=== PATIENT | male | born 1985 | race Caucasian/White ===

== ENCOUNTER 2021-04-10 20:20 | Inpatient (IN) ==
[2021-04-10 20:56] LABS: Appearance Urine Clear (Clear); Bacteria Urine Automated Negative (Negative); Bilirubin Urine Negative (Negative); Blood Urine Negative (Negative); Color Urine Dark Yellow; Glucose Urine UA Negative (Negative); Ketones Urine 1+ (Negative); Leukocyte Esterase Urine Negative (Negative); Nitrite Urine Negative (Negative); Protein Urine 1+ (Negative); RBC Urine Automated 0-4 /hpf (0-4); Specific Gravity Urine 1.034 (1.000-1.030); Urobilinogen Urine Negative (Negative); pH Urine 5.5 (4.5-7.5)
[2021-04-10 21:08] LABS: Basophils # (auto) 0.03 K/uL (0-0.2); Basophils % (auto) 0.3 %; Eosinophils # (auto) 0.03 K/uL (0-0.5); Eosinophils % (auto) 0.3 %; Hematocrit (blood only) 40.8 % (42-52); Hemoglobin 13.5 g/dL (14.0-18.0); Immature Granulocytes # (auto) 0.01 K/uL (0.00-0.02); Immature Granulocytes % (auto) 0.1 %; Lymphocytes # (auto) 3.65 K/uL (1.2-3.4); Lymphocytes % (auto) 33.2 %; Mean Corpuscular Hemoglobin 25.6 pg (25-34); Mean Corpuscular Hgb Conc 33.1 g/dL (32-36); Mean Corpuscular Volume 77.4 fL (80-100); Mean Platelet Volume 9.5 fL (7.4-10.4); Monocytes % (auto) 6.4 %; Neutrophils # (auto) 6.59 K/uL (1.4-6.5); Neutrophils % (auto) 59.7 %; Platelet Count 331 K/uL (130-400); RDW Coefficient of Variation 17.1 % (11.5-14.5); RDW Standard Deviation 48.4 fL (36.4-46.3); Red Blood Count 5.27 M/uL (4.7-6.1); White Blood Count 11.01 K/uL (4.8-10.8)
[2021-04-10 21:22] LABS: Amphetamines+Metham, Urine Pos (Neg); Barbiturates, Urine Neg (Neg); Benzodiazepine, Urine Neg (Neg); Cocaine, Urine Neg (Neg); MDMA (Ecstacy), Urine Pos (Neg); Methadone, Urine Neg (Neg); Opiate, Urine Neg (Neg); Phencyclidine, Urine Neg (Neg)
[2021-04-10 21:24] LABS: Albumin Level 4.5 gm/dl (3.4-5.0); BUN Creatinine Ratio 17.6 (10-20); Calcium 9.9 mg/dl (8.5-10.1); Creatinine Clr Calc Pharmacy 94.1 ml/min; Est GFR (African American) 86.5 ml/min; Est GFR (Non-African American) 74.7 ml/min; Potassium 3.9 mmol/L (3.5-5.1)
[2021-04-10 21:35] LABS: Albumin Globulin Ratio 1.1 (0.9-2); Globulin 4.2 gm/dl (2.5-4.0); Thyroid Stimulating Hormone 1.84 uIu/ml (0.300-4.500); Total Protein 8.7 gm/dl (6.4-8.2)
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
[2021-04-10 21:50] LABS: Acetaminophen < 2 ug/ml (10-30); Salicylate 4.5 mg/dl (2.8-20)
[2021-04-10] MEDS ORDERED: BENZONATATE 100 MG CAPSULE PO ONE (22:47)
[2021-04-10] MEDS ORDERED: BUPRENORPHINE/NALOXONE 8/2 MG TAB SL STA (23:50)
--- NOTE | 2021-04-11 00:24 | Emergency Department Note ---
ED Visit Note This case was signed out to me at change of shift awaiting bed placement. The patient met with the ED psychiatric case management director and began to deny the suicidal ideation. The case management director petitioned a 302. I signed off on the petitioning statement as I felt the patient had made a serious suicidal threat. The patient was accepted to [address]. .
[2021-04-11] MEDS ORDERED: ACETAMINOPHEN 325 MG TAB PO PRN (04:34)
[2021-04-11] MEDS ORDERED: SODIUM CHLORIDE 0.65% NA SOLN 45 ML (OCEAN) PRN (04:34)
[2021-04-11] MEDS ORDERED: ALUMINUM/MAGNESIUM SUSP 30 ML UDC PO PRN (04:34)
[2021-04-11] MEDS ORDERED: hydrOXYzine HCl 25 MG TAB PO PRN ×2 (04:34)
[2021-04-11] MEDS ORDERED: MAGNESIUM HYDROXIDE SUSP 30 ML UDC PO PRN (04:34)
[2021-04-11] MEDS ORDERED: BISMUTH SUBSALICYLATE LIQD 236 ML PO PRN (04:34)
[2021-04-11] MEDS: NICOTINE 21 MG/24 HR TDSY TD SCH (08:52)
[2021-04-11] MEDS: NICOTINE POLACRILEX 2 MG GUM MT PRN ×4 (08:54→21:48)
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
[2021-04-11] MEDS ORDERED: BUPRENORPHINE/NALOXONE 8/2 MG TAB SL STA (12:15)
[2021-04-11] MEDS ORDERED: ALUMINUM/MAGNESIUM/SIMETH (MAALOX MAX) 30 ML UDC PO PRN (12:52)
[2021-04-11] MEDS ORDERED: MELATONIN 3 MG TAB PO PRN (12:52)
[2021-04-11] MEDS ORDERED: OMEPRAZOLE 40 MG PO SCH (13:00)
[2021-04-11] MEDS: hydrOXYzine HCl 25 MG TAB PO SCH ×2 (14:00→20:45)
[2021-04-11] MEDS: buPROPion XL 150 MG TABCR PO SCH (14:00)
[2021-04-11] MEDS: BUPRENORPHINE/NALOXONE 8/2 MG TAB SL SCH (20:46)
[2021-04-11] MEDS ORDERED: PRAZOSIN HCL 1 MG CAP PO SCH (22:00)
[2021-04-11] MEDS ORDERED: DOXEPIN HCL 50 MG CAPSULE PO SCH (22:00)
[2021-04-12] MEDS: hydrOXYzine HCl 25 MG TAB PO SCH ×3 (08:43→21:26)
[2021-04-12] MEDS: buPROPion XL 150 MG TABCR PO SCH (08:43)
[2021-04-12] MEDS: MULTIVITAMIN TAB PO SCH (08:43)
[2021-04-12] MEDS: BUPRENORPHINE/NALOXONE 8/2 MG TAB SL SCH ×2 (08:43→21:26)
[2021-04-12] MEDS: NICOTINE 21 MG/24 HR TDSY TD SCH (08:44)
[2021-04-12] MEDS ORDERED: buPROPion XL 150 MG TABCR PO SCH (09:00)
[2021-04-12] MEDS: NICOTINE POLACRILEX 2 MG GUM MT PRN ×5 (09:14→21:42)
[2021-04-12] MEDS ORDERED: NICOTINE POLACRILEX 2 MG GUM MT PRN ×2 (12:53→13:20)
--- NOTE | 2021-04-12 18:58 | Psychiatric Progress Note ---
Date of Service April 12, 2021 Impression / Recommendations Impression Mr. Sebastián Turpin is a 35-year-old male who was brought to the emergency department by police after he had called them because he needed to come to the hospital. Patient admits that the reason that he needed to come to the hospital is because he wanted to continue his medications, he wanted to stay off the streets, and he is concerned that he is being followed by people he thinks he has information on. Patient does not appear paranoid in any other way he he is genuinely concerned about family members he thinks have committed a crime and may be out to" stop him" patient does not appear psychotic there is no evidence of response to internal stimuli patient denies depression his affect throughout the meeting was full, he is able to easily engage does not show states that he is paranoid towards them he does give the sense that he is avoiding some P persons on the outside. Patient denies homicidal ideation patient denies access to guns. Patient is willing to go back to rehab. Patient also was willing to give consent to the rehab facility to obtain his medication list he willingly gave consent to the pharmacy to get his medications, but he did not want staff talking to the family members to confirm his story. Patient's PDMP is listed below, patient reports being on 16 mg of Suboxone daily which is confirmed by his PDMP review however his dosing is inconsistent and not consistent with patient's story of taking "16 mg every day for the past 16 years" 03/06/2021 2 03/01/2021 BUPRENORPHINE-NALOX 8-2 MG TAB 14.0 7 TH KRA [id number] ACME ([id number]) 0 16.0 mg Comm Ins [place] 02/08/2021 1 02/08/2021 BUPRENORP-NALOX 8-2 MG SL FILM 28.0 14 JU A M [id number] PENNS ([id number]) 0 16.0 mg Medicaid [place] 02/01/2021 1 02/01/2021 BUPRENORP-NALOX 8-2 MG SL FILM 14.0 7 JU A M [id number] PENNS ([id number]) 0 16.0 mg [place] 01/25/2021 1 01/25/2021 BUPRENORP-NALOX 8-2 MG SL FILM 14.0 7 JU A M [id number] PENNS ([id number]) 0 16.0 mg Private Pay [place] (1) Mood disorder: 04/12/21- Patient able to express needs, interested in Rehab, but continues to demand specific places he wants to go. No evidence of Response to internal stimuli noted. Will continue with Rehab planning patient s suboxone is confirmed, would need to continue to avoid withdrawal. At this time 04/11/21 Patient initially was admitted as suicidal this patient is admitted to 3 [facility] mental health unit he is on every 15 minute checks to monitor his behavior with suicide precautions for safety patient will participate in group recreational and milieu therapies and will be offered additional individual and family sessions as clinically appropriate. At this time patient denies suicidal ideations during examination affect is full and there was no evidence the patient needed to be an involuntary 302 patient status was changed to 201 voluntary admission. (2) Methamphetamine dependence, continuous: This patient has history of methamphetamine dependence patient denies use since been in rehab brief intervention was offered and accepted intervention was greater than 5 minutes in length and included assessing readiness to quit advised on how to reduce and abstain and how to set specific goals for this hospitalization social insurance administrator will also assist in accepting barriers to sobriety and problem solving for solutions to those problems while arranging for referral to appropriate treatment. (3) Cannabis use disorder, moderate, dependence: This patient has history of methamphetamine dependence patient denies use since been in rehab brief intervention was offered and accepted intervention was greater than 5 minutes in length and included assessing readiness to quit advised on how to reduce and abstain and how to set specific goals for this hospitalization social insurance administrator will also assist in accepting barriers to sobriety and problem solving for solutions to those problems while arranging for referral to appropriate treatment. (4) Malingering: Provided we will continue to monitor rule out malingering patient may have secondary gain for coming to hospitalization including obtaining Suboxone. Hiding away from persons who actually may be trying to either harm him based on his long legal history. Including avoiding nursing home. Patient has multiple stories at different times to different providers. Patient's story is inconsistent, it is unclear at this time patient's motivation for hospitalization. Inventory Assets Strengths: verbal Needs: addictions treatment Risk Factors Assessment Male: Yes : Yes Do You Have Access To A Gun?: No Health Problems: No Mental Health Diagnoses: Yes Substance Use Disorders: Yes Previous Attempt: No Protective Factors Assessment Employed: No Good Rapport with Provider: Yes Interval History Chief Complaint "[I think I am doing better and just trying to stay alive and get out of here.]". Review of Systems Sleep Information Total Hours of Sleep: 7.5 Sleep Comments: patient admitted at 0416 Meal Information Percent Meal Consumed - Breakfast: 100 Percent Meal Consumed - Lunch: 100 Percent Meal Consumed - Dinner: 100 Subjective Subjective Patient was seen & assessed and interval progress reviewed with [treatment team] [nursing and social work] Patient continues to refuse options offered for rehab patient reports concerned about leaving the hospital without the Suboxone. He is not engaged in groups he eats his meals and returns to his bedroom he denies suicidal thoughts or homicidal thoughts" and try to stay alive" patient reports his ideal discharge w ill be to go to [place] in [place] where he has been in the past and also has had outpatient. providers feedback given to patient that facility cannot get him to another state. At this time patient unhappy with the fact that he may need to be in the [place] area patient given feedback regarding rehab patient denies suicidal thoughts denies homicidal thoughts unclear if patient is having delusions but patient is not paranoid about staff and seems to be genuinely concerned about unknown persons in the community may be able to harm him based on some criminally related charges he had described. Physical Exam Psychiatric Orientation: oriented x 3, oriented to place, oriented to time and + guarded Apperance: appropriately dressed Eye Contact: + fair eye contact Motor Behavior: + psychomotor agitation Speech: + loud speech; no pressured speech Affect: euthymic affect Mood: + irritable mood Thought Process: goal directed thought process and linear/logical thought process Thought Content: + preoccupation Suicidal Thoughts: denies suicidal thoughts and denies suicidal plan Homicidal Thoughts: denies homicidal thoughts and denies homicidal plan Hallucinations: no auditory hallucinations and no visual hallucinations Cognition: recent memory grossly intact Estimated Intelligence: consistent with education level Insight: + limited insight Able to clearly express his needs for rehab, medication follow up Judgement: + limited judgement Vital Signs (Past 24 Hours) Last Vital Signs Temp 36.4 C L 04/12/21 06:42 Pulse 71 04/12/21 06:43 Resp 16 04/12/21 06:42 BP 101/62 04/12/21 06:43 Pulse Ox 95 04/10/21 23:09 A physical exam was performed in the emergency department by Dr. March. For the purpose of medical clearance. I assessed the physical exam as correct and adequate for the purposes of inpatient physical exam. Results & Data ([facility]) Current Inpatient Medications Current Inpatient Medications: Current Inpatient Medications Acetaminophen (Acetaminophen 325 Mg Tab) 650 mg PO Q4H PRN PRN Reason: Headache or Minor Fever Stop: 05/11/21 04:33 Al Hydrox/Mg Hydrox/Simethicone (Aluminum/Magnesium/Simeth (Maalox Max) 30 Ml Udc) 30 ml PO Q6H PRN PRN Reason: Dyspepsia Stop: 05/11/21 12:51 Bismuth Subsalicylate (Bismuth Subsalicylate Liqd 236 Ml) 15 ml PO PRN PRN PRN Reason: Loose Stool Stop: 05/11/21 04:33 Buprenorphine/Naloxone (Buprenorphine/Naloxone 8/2 Mg Tab) 1 tab SL BID [facility] Stop: 05/11/21 20:59 Last Admin: 04/12/21 08:43 Dose: 1 tab Documented by: Bupropion HCl (Bupropion Xl 150 Mg Tabcr) 150 mg PO QAM [facility] Stop: 05/11/21 12:29 Last Admin: 04/12/21 08:43 Dose: 150 mg Documented by: Hydroxyzine HCl (Hydroxyzine Hcl 25 Mg Tab) 25 mg PO Q4H PRN PRN Reason: Anxiety Stop: 05/11/21 04:33 Hydroxyzine HCl (Hydroxyzine Hcl 25 Mg Tab) 50 mg PO TID [facility] Stop: 05/11/21 13:59 Last Admin: 04/12/21 14:30 Dose: Not Given Documented by: Magnesium Hydroxide (Magnesium Hydroxide Susp 30 Ml Udc) 30 ml PO DAILY PRN PRN Reason: Constipation Stop: 05/11/21 04:33 Melatonin (Melatonin 3 Mg Tab) 3 mg PO HS PRN PRN Reason: Sleep Stop: 05/11/21 12:51 Miscellaneous (Remove Nicoderm Patch) 1 ea N/A DAILY@[id number] [facility] Stop: 05/11/21 08:58 Last Admin: 04/12/21 08:44 Dose: 1 ea Documented by: Multivitamins (Multivitamin Tab) 1 tab PO QAM [facility] Stop: 05/12/21 08:59 Last Admin: 04/12/21 08:43 Dose: 1 tab Documented by: Nicotine (Nicotine 21 Mg/24 Hr Tdsy) 21 mg TD QAM [facility] Stop: 05/11/21 08:59 Last Admin: 04/12/21 08:44 Dose: 21 mg Documented by: Nicotine Polacrilex (Nicotine Polacrilex 2 Mg Gum) 2 piece MT Q2HWA PRN PRN Reason: cravings Stop: 05/12/21 14:39 Last Admin: 04/12/21 17:56 Dose: 2 piece Documented by: Sodium Chloride (Sodium Chloride 0.65% Na Soln 45 Ml ([place])) 1 - 2 sprays NA PRN PRN PRN Reason: Nasal Dryness/Congestion Stop: 05/11/21 04:33 Mental Health & Subst Abuse Tx Therapist Name of Therapist: None [employer] Name of Hat [employer] Machine: None
[2021-04-13] MEDS: NICOTINE 21 MG/24 HR TDSY TD SCH (07:30)
[2021-04-13] MEDS: BUPRENORPHINE/NALOXONE 8/2 MG TAB SL SCH (07:31)
[2021-04-13] MEDS: buPROPion XL 150 MG TABCR PO SCH (07:32)
[2021-04-13] MEDS: MULTIVITAMIN TAB PO SCH (07:36)
[2021-04-13] MEDS: hydrOXYzine HCl 25 MG TAB PO SCH (07:36)
[2021-04-13] MEDS: NICOTINE POLACRILEX 2 MG GUM MT PRN (09:25)
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
[2021-04-15 00:47] LABS: Amphetamine Urine, Confirm 5860 ng/mL (<250); MDA negative; MDEA negative; MDMA (Ecstasy) Urine, Confirm negative; Marijuana Quant, GCMS Urine 10 ng/mL (<5); Methamphetamine, Ur Confirm >15000 ng/mL (<250)
== END 2021-04-13 11:31 | disposition home or self-care (01) | DRG 885 ==
LOC: ED 20:20 → 3S 04-11 03:46